=== PATIENT | male | born 1985 | race African-American/Black ===

== ENCOUNTER 2020-09-02 16:55 | Emergency (ER) | payer SELFPAY ==
[~2020-09-02] VITALS: Wt 79.5 kg
[2020-09-02 18:18] LABS: BASO # 0.1 (0.02-0.10); EOS # 0.2 (0.04-0.40); EOS % 2.9 % (0.0-4.0); HEMATOCRIT 47.2 % (42.0-52.0); HEMOGLOBIN 15.2 g/dL (13.5-18.0); LYMPH# 2.2 (1.50-4.00); MEAN CELL VOLUME 88 fl (78-100); MEAN CORPUSCULAR HEMOGLOBIN 28 pg (27-31); MEAN CORPUSCULAR HGB CONC 32 g/dL (33-37); MEAN PLATELET VOLUME 9.9 fl (7.4-10.4); MONO # 0.7 (0.20-0.80); NEU # 3.2 (1.40-6.50); PLATELET COUNT 247 K/mm3 (130-400); RED BLOOD COUNT 5.39 M/mm3 (4.20-5.60); RED CELL DISTRIBUTION WIDTH 12.6 % (11.5-14.5); WHITE BLOOD COUNT 6.3 K/mm3 (4.8-10.8)
[2020-09-02 18:26] LABS: ALBUMIN 4.2 g/dL (3.5-5.0)
[2020-09-02 18:27] LABS: CALCIUM 9.2 mg/dL (8.3-10.5)
[2020-09-02 18:29] LABS: TOTAL PROTEIN 7.8 g/dL (6.4-8.3)
[2020-09-02 18:30] LABS: TOTAL BILIRUBIN 0.4 mg/dL (0.2-1.2)
[2020-09-02 19:12] VITALS: BP 126/90
== END 2020-09-02 19:24 | disposition home or self-care (01) ==
LOC: ED 16:55
PROVIDERS: Nurse Practitioner
DX: R51.9 Headache, unspecified (principal); W50.1XXA Accidental kick by another person, initial encounter; Y92.009 Unspecified place in unspecified non-institutional (private) residence as the place of occurrence of the external cause